=== PATIENT | male | born 1975 | race Caucasian/White ===

== ENCOUNTER 2024-06-03 19:08 | Emergency (ER) | payer SELFPAY ==
[~2024-06-03] VITALS: Ht 170.2 cm; Wt 81.8 kg
[2024-06-03 19:10] VITALS: O2SAT 100
[2024-06-03 19:19] VITALS: TEMP 36.9; O2SAT 99
[2024-06-03 19:57] LABS: BASOPHILS % 0.5 % (0.0-2.0); EOSINOPHILS % 0.9 % (0.0-5.0); HEMATOCRIT. 42.3 % (42.0-52.0); HEMOGLOBIN. 14.1 g/dL (14.0-18.0); LYMPHOCYTES % 20.7 % (20.0-50.0); MEAN CORPUSCULAR HEMOGLOBIN 30.5 pg (28.0-32.0); MEAN CORPUSCULAR HGB CONC 33.5 g/dL (31.0-37.0); MEAN CORPUSCULAR VOLUME 91.1 fL (80.0-94.0); MEAN PLATELET VOLUME 9.4 fl (7.4-10.4); MONOCYTES % 6.7 % (2.0-8.0); NEUTROPHILS % 71.2 % (40.0-76.0); PLATELET 251 x1000/uL (130-400); RED BLOOD CELL COUNT 4.64 mill/uL (4.7-6.1); RED CELL DISTRIBUTION WIDTH 12.5 % (11.6-14.6); WHITE BLOOD COUNT 7.2 x1000/uL (4.5-11.0)
[2024-06-03] MEDS ORDERED: HYDROCODONE/ACETAMINOPHEN 10/325MG TABLET PO ONE (20:15)
[2024-06-03 20:37] LABS: CHLORIDE 103 mEq/L (98-107); POTASSIUM 4.2 mEq/L (3.5-5.1); SODIUM 139 mEq/L (136-145)
[2024-06-03 20:39] LABS: CALCIUM 9.8 mg/dL (8.7-10.4); CARBON DIOXIDE 27 mEq/L (21-32)
[2024-06-03 20:44] LABS: CREATININE 0.9 mg/dL (0.6-1.3); GLUCOSE 95 mg/dL (70-105); UREA NITROGEN BLOOD 14 mg/dL (9-23)
[2024-06-03 20:45] LABS: ALANINE AMINOTRANSFERASE 17 IU/L (10-49)
[2024-06-03 20:46] LABS: ALBUMIN 4.3 g/dL (3.2-4.8); ASPARTATE AMINOTRANSFERASE 19 IU/L (<34); BILIRUBIN DIRECT 0.1 mg/dL (<=3.0); BILIRUBIN TOTAL 0.4 mg/dL (0.1-1.0); PROTEIN TOTAL 7.1 g/dL (6.0-8.3)
[2024-06-03] MEDS: FAMOTIDINE 20MG TABLET PO ONE (21:00)
[2024-06-03 21:01] VITALS: BP 124/88; PULSE 86; RESP 17
[2024-06-03] MEDS: HYDROCODONE/ACETAMINOPHEN 10/325MG TABLET PO NR (21:01)
[2024-06-03] MEDS: ONDANSETRON 4MG ODT PO ONE (21:01)
[2024-06-04] MEDS ORDERED: CEL200 MT (01:21)
[2024-06-04] MEDS ORDERED: PROT40 MT (01:21)
[2024-06-04] MEDS ORDERED: IOHEXOL-350 100 ML BOTTLE ONE (01:25)
== END 2024-06-04 02:01 | disposition home or self-care (01) ==
LOC: ER 19:08
DX: R10.9 Unspecified abdominal pain (principal); K21.9 Gastro-esophageal reflux disease without esophagitis
CPT/HCPCS: 80076; 80048; 80320; 83690; 85025; 36415; 74174; 71275; 74176; 99285; Q0162; Q9967; G0480